=== PATIENT | male | born 1930 | race Caucasian/White ===

== ENCOUNTER 2019-09-19 10:08 | Observation (INO) | payer OTHER ==
[2019-09-19 11:43] LABS: Absolute Lymphocytes (CBC) 1.7 K/uL (0.7-4.9); Basophils % 0.5 % (0-1.3); Hematocrit 47.4 % (39.6-49.0); Lymphocytes % 13.9 % (15.3-44.8); MPV 7.8 fL (7.6-11.3)
[2019-09-19 12:10] LABS: Potassium 3.8 mmol/L (3.5-5.1)
--- NOTE | 2019-09-19 12:19 | RAD REPORT ---
EXAM DESCRIPTION: RAD - Chest Single View - 09/19/2019 12:06 pm CLINICAL HISTORY: COUGH COMPARISON: Two view chest July 2017 TECHNIQUE: AP portable chest image was obtained 09/19/2019 12:06 pm . FINDINGS: Interstitial and alveolar opacities are present in the right lower lung field superimposed on extensive fibrotic lung change. No dense consolidation. Stranding in the left base and left costo phrenic angle blunting are similar to the comparison. Heart and vasculature are normal. No pneumothorax. No acute bony abnormality seen. No acute aortic f indings suspected. IMPRESSION: Right lower lobe pneumonia changes are present superimposed on chronic interstitial lung disease. Chronic pleural and parenchymal changes left lung base.
--- NOTE | 2019-09-19 12:22 | ER ---
Nurse's Notes [facility] Name: King Henderson Age: 89 yrs Sex: Male : 1930 Arrival Date: 09/19/2019 Time: 10:11 Bed 6 Private MD: Rosa Adair Diagnosis: Pneumonia, unspecified organism Presentation: 09/18 10:43 Chief complaint: Patient's son or daughter states: Son, Rosemarie, reports he hasn't been jl7 feeling good x 1 day, Dr. Adair ordered a chest x-ray for this morning and reported he has pneumonia. Denies fever. Reports he has been quarantined in [facility] for the past couple months. Coronavirus screen: Proceed with normal triage. Patient reports a cough. Patient reports shortness of breath or difficulty breathing. Patient denies measured and/or subjective temperature greater than 100.4F prior to today's visit. Patient denies travel on a cruise ship or to a country the [facility] currently lists as an affected area. Patient denies contact with known and/or suspected case of COVID-19. Ebola Screen: No symptoms or risks identified at this time. Initial Sepsis Screen: Does the patient meet any 2 criteria? RR > 20 per min. No. Patient's initial sepsis screen is negative. Does the patient have a suspected source of infection? Yes: Productive cough/pneumonia. Risk Assessment: Do you want to hurt yourself or someone else? Patient reports no desire to harm self or others. Onset of symptoms was September 18, 2019. Care prior to arrival: None. 10:43 Method Of Arrival: Wheelchair jl7 10:43 Acuity: HITESH 3 jl7 Triage Assessment: 10:51 General: Appears in no apparent distress. uncomfortable, Behavior is calm, cooperative, jl7 appropriate for age. Pain: Denies pain. Historical: - Allergies: 10:51 NKDA; jl7 - Home Meds: 10:51 allopurinol 300 mg Oral tab 1 tab once daily [Active]; Breo Ellipta 100-25 mcg/dose jl7 inhalation dsdv [Active]; clopidogrel 75 mg Oral tab 1 tab once daily [Active]; diltiazem HCl 120 mg Oral CDER 1 cap once daily [Active]; fluticasone 50 mcg/actuation nasal spsn [Active]; furosemide 20 mg Oral tab 1 tab once daily [Active]; hydroxyzine HCl 10 mg Oral tab three times a day [Active]; lansoprazole 30 mg Oral cpDR 1 cap once daily [Active]; liothyronine 25 mcg Oral tab 0.5 tab once daily [Active]; lovastatin 10 mg Oral tab 1 tab once daily [Active]; Namenda XR 28 mg Oral CSpX 1 cap once daily [Active]; Mucinex 600 mg oral Ta12 [Active]; Colace 100 mg Oral cap 1 cap 2 times per day [Active]; Ventolin Nebulizer [Active]; - PMHx: 10:51 COPD; Dementia; Hyperlipidemia; Hypertension; Hyperuricemia; Hypothyroidism; CVA; jl7 Pneumonia; Gout; - PSHx: 11:00 None; rb1 - Immunization history:: Adult Immunizations up to date. - Social history:: Smoking status: Patient denies any tobacco usage or history of. Screenin:10 Abuse screen: Denies threats or abuse. Nutritional screening: No deficits noted. rb1 Tuberculosis screening: No symptoms or risk factors identified. 11:10 Fall Risk No fall in past 12 months (0 pts). Secondary diagnosis (15 points) impaired rb1 mobility, IV access (20 points). Ambulatory Aid- None/Bed Rest/Nurse Assist (0 pts). Gait- Impaired (20 pts.). Mental Status- Oriented to own ability (0 pts). Total Glez Fall Scale indicates High Risk Score (45 or more points). Fall prevention measures have been instituted. Side Rails Up X 2 Placed Close to Nursing Station 1:1 Attendant Assigned Frequent Obs/Assessments Occuring As available patient and family educated on Fall Prevention Program and Strategies. Assessment: 11:10 General: Appears uncomfortable, Behavior is calm, cooperative, Denies fever. Pain: rb1 Denies pain. Neuro: Level of Consciousness is awake, alert, obeys commands, Oriented to person, place, time, situation. Cardiovascular: Capillary refill < 3 seconds. Respiratory: Reports shortness of breath cough that is Airway is patent Respiratory effort is even, unlabored, Respiratory pattern is symmetrical, tachypnea. GI: No signs and/or symptoms were reported involving the gastrointestinal system. : No signs and/or symptoms were reported regarding the genitourinary system. Derm: Skin is pink, warm \T\ dry. 11:53 Reassessment: X-ray at the bedside. rb1 12:10 Reassessment: Patient appears in no apparent distress at this time. Patient and/or rb1 family updated on plan of care and expected duration. Pain level reassessed. Patient is alert, oriented x 3, equal unlabored respirations, skin warm/dry/pink. 13:00 Reassessment: Patient appears in no apparent distress at this time. Patient and/or rb1 family updated on plan of care and expected duration. Pain level reassessed. Patient states feeling better. 14:00 Reassessment: Patient appears in no apparent distress at this time. Pt. is watching TV. rb1 14:36 Reassessment: Called report to RICARDO Leija. Information from the [facility] was given. All rb1 questions asked and answered. Liss asked if we could wait to bring the pt. to the floor so she can have time to get another pt. transferred to another nurse. MARIELLA Sousa was notified of the situation. 15:00 Reassessment: Patient appears in no apparent distress at this time. Patient and/or rb1 family updated on plan of care and expected duration. Pain level reassessed. Patient is alert, oriented x 3, equal unlabored respirations, skin warm/dry/pink. Patient denies pain at this time. Vital Signs: 10:43 BP 115 / 53; Pulse 83; Resp 28; Temp 98.7; Pulse Ox 92% ; Weight 81.65 kg; Pain 0/10; jl7 12:30 BP 106 / 62; Pulse 79; Resp 23; Pulse Ox 94% on 2 lpm NC; rb1 13:14 BP 107 / 65; Pulse 76; Resp 25; Pulse Ox 97% on 3 lpm NC; rb1 14:10 BP 108 / 63; Pulse 76; Resp 21; Pulse Ox 96% on 3 lpm NC; rb1 15:00 BP 110 / 65; Pulse 74; Resp 23; Pulse Ox 97% 2 lpm ; rb1 ED Course: 10:11 Patient arrived in ED. as 10:11 Rosa Adair MD is Private Physician. as 10:26 [facility] Cede[facility]-C [facility]. kb 10:26 Jose Phan MD is Attending Physician. kb 10:47 Triage completed. jl7 10:51 Arm band placed on right wrist. jl7 11:00 Vaishali Hummel, RN is Primary Nurse. rb1 11:10 Patient has correct armband on for positive identification. Placed in gown. Bed in low rb1 position. Call light in reach. Side rails up X2. hall monitor on. Pulse ox on. NIBP on. Warm blanket given. Pillow given. 11:19 COVID walked over to lab. rb1 11:44 Initial lab(s) drawn, by me, sent to lab. First set of blood cultures drawn by me, lt1 Second set of blood cultures drawn by me. 11:54 Inserted saline lock: 22 gauge in right antecubital area, using aseptic technique. lt1 11:55 Blood Culture Adult (2) Sent. lt1 11:55 Basic Metabolic Panel Sent. lt1 11:56 COVID-19 Sent. lt1 11:56 Flu Sent. lt1 11:56 Procalcitonin Sent. lt1 11:56 Lactate Sent. lt1 12:07 Chest Single View In Process Unspecified. EDMS 12:21 Hong Harmon DO is Hospitalizing Provider. kb 12:58 Inserted saline lock: 22 gauge in right antecubital area, using aseptic technique. rb1 13:10 IV discontinued, intact, bleeding controlled, No redness/swelling at site. Pressure rb1 dressing applied. 15:24 No provider procedures requiring assistance completed. Patient admitted, IV remains in rb1 place. Administered Medications: 13:00 Drug: Rocephin 1 grams Route: IV; Rate: calculated rate; Site: right antecubital; rb1 13:15 Follow up: Response: No adverse reaction; IV Status: Completed infusion rb1 13:00 Drug: Zithromax 500 mg Route: IVPB; Infused Over: 1 hrs; Site: right antecubital; rb1 14:04 Follow up: Response: No adverse reaction; IV Status: Completed infusion rb1 Outcome: 12:22 Decision to Hospitalize by Provider. kb 15:24 Patient left the ED. aa5 15:24 Admitted to Tele accompanied by tech, via stretcher, room 414, with chart, Report rb1 called to RICARDO Leija 15:24 Condition: stable 15:24 Instructed on the need for admit. Signatures: Dispatcher [employer] EDMS Ana Cedeño, SKY DIVER-C SKY DIVER-Leann Robles Audri, RN RN aa5 Vaishali Hummel, RN RN rb1 Juan Carlos Brito RN RN jl7 Barb Roque lt1
--- NOTE | 2019-09-19 12:22 | EDPHYS ---
Physician Documentation [facility] Name: King Henderson Age: 89 yrs Sex: Male : 1930 Arrival Date: 09/19/2019 Time: 10:11 Bed 6 Private MD: Rosa Adair ED Physician Jose Phan HPI: 09/18 12:11 This 89 yrs old Male presents to ER via Wheelchair with complaints of kb Pneumonia. 12:12 The patient or guardian reports cough, that is intermittent, described as moderate, kb with no sputum. Onset: The symptoms/episode began/occurred 1 week(s) ago. Severity of symptoms: At their worst the symptoms were moderate, in the emergency department the symptoms are unchanged. Modifying factors: The symptoms are alleviated by nothing, the symptoms are aggravated by nothing. Associated signs and symptoms: The patient has no apparent associated signs or symptoms. The patient has not experienced similar symptoms in the past. The patient has not recently seen a physician. Pt reports cough for about a week. States it has been getting worse so Dr Adair had a CXR done today. He was told he has pneumonia and needed to come to the ER. . Historical: - Allergies: 10:51 NKDA; jl7 - Home Meds: 10:51 allopurinol 300 mg Oral tab 1 tab once daily [Active]; Breo Ellipta 100-25 mcg/dose jl7 inhalation dsdv [Active]; clopidogrel 75 mg Oral tab 1 tab once daily [Active]; diltiazem HCl 120 mg Oral CDER 1 cap once daily [Active]; fluticasone 50 mcg/actuation nasal spsn [Active]; furosemide 20 mg Oral tab 1 tab once daily [Active]; hydroxyzine HCl 10 mg Oral tab three times a day [Active]; lansoprazole 30 mg Oral cpDR 1 cap once daily [Active]; liothyronine 25 mcg Oral tab 0.5 tab once daily [Active]; lovastatin 10 mg Oral tab 1 tab once daily [Active]; Namenda XR 28 mg Oral CSpX 1 cap once daily [Active]; Mucinex 600 mg oral Ta12 [Active]; Colace 100 mg Oral cap 1 cap 2 times per day [Active]; Ventolin Nebulizer [Active]; - PMHx: 10:51 COPD; Dementia; Hyperlipidemia; Hypertension; Hyperuricemia; Hypothyroidism; CVA; jl7 Pneumonia; Gout; - PSHx: 11:00 None; rb1 - Immunization history:: Adult Immunizations up to date. - Social history:: Smoking status: Patient denies any tobacco usage or history of. ROS: 12:12 Constitutional: Negative for fever, chills, and weight loss, ENT: Negative for injury, kb pain, and discharge, Neck: Negative for injury, pain, and swelling, Cardiovascular: Negative for chest pain, palpitations, and edema, Abdomen/GI: Negative for abdominal pain, nausea, vomiting, diarrhea, and constipation, Back: Negative for injury and pain, MS/Extremity: Negative for injury and deformity, Skin: Negative for injury, rash, and discoloration, Neuro: Negative for headache, weakness, numbness, tingling, and seizure. 12:12 Respiratory: Positive for cough, "sounds productive", shortness of breath, Negative for hemoptysis, orthopnea, pleurisy. Exam: 12:12 Constitutional: This is a well developed, well nourished patient who is awake, alert, kb and in no acute distress. Head/Face: Normocephalic, atraumatic. Chest/axilla: Normal chest wall appearance and motion. Nontender with no deformity. No lesions are appreciated. Cardiovascular: Regular rate and rhythm with a normal S1 and S2. No gallops, murmurs, or rubs. Normal PMI, no JVD. No pulse deficits. Abdomen/GI: Soft, non-tender, with normal bowel sounds. No distension or tympany. No guarding or rebound. No evidence of tenderness throughout. Back: No spinal tenderness. No costovertebral tenderness. Full range of motion. Skin: Warm, dry with normal turgor. Normal color with no rashes, no lesions, and no evidence of cellulitis. MS/ Extremity: Pulses equal, no cyanosis. Neurovascular intact. Full, normal range of motion. Neuro: Awake and alert, GCS 15, oriented to person, place, time, and situation. Cranial nerves II-XII grossly intact. Motor strength 5/5 in all extremities. Sensory grossly intact. Cerebellar exam normal. Normal gait. 12:12 Respiratory: the patient does not display signs of respiratory distress, Respirations: normal, Breath sounds: rhonchi, that are mild, are located in both bases. Vital Signs: 10:43 BP 115 / 53; Pulse 83; Resp 28; Temp 98.7; Pulse Ox 92% ; Weight 81.65 kg; Pain 0/10; jl7 12:30 BP 106 / 62; Pulse 79; Resp 23; Pulse Ox 94% on 2 lpm NC; rb1 13:14 BP 107 / 65; Pulse 76; Resp 25; Pulse Ox 97% on 3 lpm NC; rb1 14:10 BP 108 / 63; Pulse 76; Resp 21; Pulse Ox 96% on 3 lpm NC; rb1 15:00 BP 110 / 65; Pulse 74; Resp 23; Pulse Ox 97% 2 lpm ; rb1 MDM: 10:52 Patient medically screened. kb 12:14 Data reviewed: vital signs, nurses notes. Data interpreted: Pulse oximetry: on room air kb is 92 %. Interpretation: normal. 12:16 Counseling: I had a detailed discussion with the patient and/or guardian regarding: the kb historical points, exam findings, and any diagnostic results supporting the discharge/admit diagnosis, lab results, radiology results, the need for further work-up and treatment in the hospital. 09/18 10:49 Order name: CBC with Diff; Complete Time: 11:56 kb 09/18 10:49 Order name: Basic Metabolic Panel; Complete Time: 12:15 kb 09/18 10:49 Order name: Blood Culture Adult (2) kb 09/18 10:49 Order name: Lactate; Complete Time: 12:07 kb 09/18 10:49 Order name: Procalcitonin; Complete Time: 12:41 kb 09/18 10:49 Order name: Flu; Complete Time: 12:00 kb 09/18 10:49 Order name: IV Start; Complete Time: 11:55 kb 09/18 10:49 Order name: COVID-19; Complete Time: 12:15 kb 09/18 11:05 Order name: Chest Single View; Complete Time: 12:22 EDMS Administered Medications: 13:00 Drug: Rocephin 1 grams Route: IV; Rate: calculated rate; Site: right antecubital; rb1 13:15 Follow up: Response: No adverse reaction; IV Status: Completed infusion rb1 13:00 Drug: Zithromax 500 mg Route: IVPB; Infused Over: 1 hrs; Site: right antecubital; rb1 14:04 Follow up: Response: No adverse reaction; IV Status: Completed infusion rb1 Disposition: 16:17 Co-signature as Attending Physician, Jose Phan MD I agree with the assessment and [facility] plan of care. Disposition: 09/19/19 12:22 Hospitalization ordered by Hong Harmon for Observation. Preliminary diagnosis is Pneumonia, unspecified organism. - Bed requested for Telemetry/MedSurg (observation). - Status is Observation. aa5 - Condition is Stable. - Problem is new. - Symptoms are unchanged. Signatures: Dispatcher [employer] EDWI Ana Cedeño, TICKET TAKER-C TICKET TAKER-Ckb Denia Garcia, RN RN dw Jose Phan MD MD kdr Merry Spencer RN RN aa5 Vaishali Hummel, RN RN rb1 Juan Carlso Brito, RN RN jl7 Corrections: (The following items were deleted from the chart) 11:05 10:51 Chest Pa And Lat (2 Views)+[email or web address] ordered. [facility] 12:42 12:22 Hospitalization Ordered by Hong Harmon DO for Inpatient Admission. Preliminary kb diagnosis is Pneumonia, unspecified organism. Bed requested for Telemetry/MedSurg (Inpatient). Status is Inpatient Admission. Condition is Stable. Problem is new. Symptoms are unchanged. kb 14:03 12:42 09/19/2019 12:22 Hospitalization Ordered by Hong Harmon DO for Observation. dw Preliminary diagnosis is Pneumonia, unspecified organism. Bed requested for Telemetry/MedSurg (observation). Status is Observation. Condition is Stable. Problem is new. Symptoms are unchanged. kb 14:06 14:03 09/19/2019 12:22 Hospitalization Ordered by Hong Harmon DO for Observation. dw Preliminary diagnosis is Pneumonia, unspecified organism. Bed requested for Telemetry/MedSurg (observation). Status is Observation. Condition is Stable. Problem is new. Symptoms are unchanged. dw 15:24 14:06 09/19/2019 12:22 Hospitalization Ordered by Hong Harmon DO for Observation. aa5 Preliminary diagnosis is Pneumonia, unspecified organism. Bed requested for Telemetry/MedSurg (observation). Status is Observation. Condition is Stable. Problem is new. Symptoms are unchanged. dw
[2019-09-19] MEDS ORDERED: CEFTRIAXONE/SWI 1gm 1 GM/10 ML SYR ONE (12:26)
[2019-09-19] MEDS ORDERED: AZITHROMYCIN IV 500 MG in NA CHLORIDE 0.9% 250 ML IVPB ONE (12:30)
[2019-09-19] MEDS ORDERED: ALBUTEROL INHALER 60 PUFF/8 GM IH PRN (15:11)
[2019-09-19] MEDS ORDERED: ACETAMINOPHEN 500 MG TAB PO PRN (15:11)
[2019-09-19] MEDS ORDERED: ONDANSETRON 4 MG/2 ML VIAL IV PRN (15:11)
[2019-09-19] MEDS ORDERED: BENZONATATE 100 MG CAP PO PRN (15:11)
[2019-09-19 16:10] VITALS: BMI 25.8
--- NOTE | 2019-09-19 16:22 | P.HP ---
Certification for Inpatient Patient admitted to: Observation With expected LOS: <2 Midnights Patient will require the following post-hospital care: Other (residential) Practitioner: I am a practitioner with admitting privileges, knowledge of patient current condition, hospital course, and medical plan of care. Services: Services provided to patient in accordance with Admission requirements found in Title 42 Section 412.3 of the Code of Federal Regulations Patient History Date of Service: 09/19/19 Primary Care Provider: Dr. Danielle Reason for admission: Abnormal chest x-ray History of Present Illness: 89-year-old male with past medical TIA, gout, hypertension and dementia. Emergency room after [facility] to further evaluate abnormal chest x-ray. The several days the patient has been having cough, congestion. He denies any significant shortness of breath. No significant complaints of fever, chills. His cough has been getting worse. He denies any nausea, vomiting, abdominal pain. Patient was sent over to further evaluate. In the ER patient was evaluated. Patient slightly tachypneic. White count 12.1, hemoglobin within normal range. Sodium 141, potassium 3.8 %period% creatinine 1.2 with a GFR 57. Glucose around 90. Pro calcitonin and lactic acid within normal range. Chest x-ray shows right lower lobe pneumonia with COPD changes. The patient was started on antibiotic therapy. Patient admitted for further evaluation. When I saw the patient ER, patient appeared stable. Oxygen saturations within normal range. Patient appears elderly. He does not appear septic. Allergies No Known Allergies Allergy (Unverified 06/07/17 07:01) Home medications list reviewed: Yes Home Medications: Allopurinol 1 tab PO DAILY 01/08/16 Clopidogrel Bisulfate [Clopidogrel] 1 tab PO DAILY 01/08/16 Furosemide 1 tab PO BID 01/08/16 Lansoprazole 1 cap PO DAILY 01/08/16 Liothyronine Sodium [Cytomel] 0.5 tab OP DAILY 01/08/16 Lovastatin 1 tab PO BEDTIME 01/08/16 Memantine HCl [Namenda Xr] 1 cap PO DAILY 01/08/16 Fluticasone/Salmeterol [Advair 250/50 Diskus*] 250 inhaler IH DAILY 03/16/16 Albuterol Sulfate [Proair Hfa] 2 puff IH Q6H PRN 06/06/17 Diltiazem Hcl 120 Mg Oral C D E R 1 cap PO DAILY 06/06/17 Vit D3 1000 Unit 5,000 unit PO DAILY 06/06/17 Acetaminophen [Pain Relief] 2 tab PO SEECOM PRN 09/19/19 Docusate Calcium [Tono-Tin] 1 tab PO DAILY AFTER SUPPER 09/19/19 Fluticasone/Vilanterol [Breo Ellipta 100-25 Mcg INH] 1 inh IH BID 09/19/19 Guaifenesin [Mucinex] 1 tab PO BID 09/19/19 Hydroxyzine HCl [Atarax] 1 tab PO TID 09/19/19 - Past Medical/Surgical History Has patient received pneumonia vaccine in the past: Yes Diabetic: No -: Dementia -: Hypertension -: Carotid arterial disease -: History of CVA in 2008 -: Hypothyroidism -: GERD -: Alcohol use -: COPD -: Former smoker -: Left hand surgery Psychosocial/ Personal History: He is . Has 3 children. He previously worked as a mail person. - Family History Family History: Reviewed- Non-Contributory - Social History Smoking Status: Former smoker Alcohol use: No CD- Drugs: No Caffeine use: Yes Place of Residence: Shelter Review of Systems General: As per HPI Eyes: Unremarkable ENT: Unremarkable Respiratory: Cough, As per HPI Cardiovascular: Unremarkable Gastrointestinal: Unremarkable Genitourinary: Unremarkable Musculoskeletal: Unremarkable Integumentary: Unremarkable Neurological: Unremarkable Lymphatics: Unremarkable Physical Examination - Vital Signs Temperature: 98.7 F Blood Pressure: 108/63 Pulse: 76 Respirations: 21 - Physical Exam General: Alert, In no apparent distress, Oriented x3, Cooperative HEENT: Atraumatic, Mucous membr. moist/pink (Increase mucus and drainage), Other (Patient with difficulty hearing) Neck: Supple Respiratory: Crackles/rales (Mild crackles to the right base) Cardiovascular: Normal pulses, Regular rate/rhythm Gastrointestinal: Normal bowel sounds, Soft and benign, Non-distended, No tenderness, No masses, No rebound, No guarding Musculoskeletal: No erythema, No tenderness, No warmth Integumentary: No tenderness/swelling, No erythema, No warmth, No cyanosis Neurological: Normal speech, Normal strength at 5/5 x4 extr, Normal tone, Normal affect - Studies Laboratory Data (last 24 hrs) 09/19/19 11:29: Sodium 141, Potassium 3.8, BUN 29 H, Creatinine 1.20, Glucose 99 09/19/19 11:29: WBC 12.1 H, Hgb 15.8, Hct 47.4, Plt Count 245 Microbiology Data (last 24 hrs): 09/19/19 11:10 Nasopharnyx Coronavirus COVID-19 PCR - Final 09/19/19 11:29 Nasopharnyx Influenza Type A Antigen Screen - Final 09/19/19 11:29 Nasopharnyx Influenza Type B Antigen Screen - Final Assessment and Plan - Plan Impression: Cough, tachypnea secondary to right lower lobe pneumonia possible aspiration complicated with COPD exacerbation Hypertension History of CVA Dementia Hyperlipidemia Hypothyroidism Plan: Cough, tachypnea secondary to right lower lobe pneumonia possible aspiration complicated with COPD exacerbation: Patient will be admitted for further evaluation and observation. Will start Rocephin and Zithromax. Will provide medication for cough, congestion. Due to his risk factors the patient will be evaluated for COVID. Influenza test pending at this time. Blood cultures obtained. Will continue to monitor and reassess. Will also start prednisone 10 mg daily. Will provide COPD medication. Maintain sats above 93%. Wean off oxygen. Anticipate improvement over the next 24 hr. Likely [facility] tomorrow. Advanced directives address in detail. Patient is do not resuscitate. Will place on DVT prophylaxis. Hypertension: Obtain and restart home medication. History of CVA: Obtain and restart home medication. Dementia: Obtain and restart home medication. Hyperlipidemia: Obtain and restart home medication. Hypothyroidism: Continue with home medication Discharge Plan: Shelter Plan to discharge in: 24 Hours - Advance Directives Does patient have a Living Will: Yes Does patient have a Durable POA for Healthcare: No - Code Status/Comfort Care Code Status Assessed: Yes (Patient is DNR) Time Spent Managing Pts Care (In Minutes): 55
[2019-09-19] MEDS: ENOXAPARIN 40 MG/0.4 ML SQ SCH (16:40)
[2019-09-19] MEDS: FUROSEMIDE 20 MG TABLET PO SCH (16:40)
[2019-09-19] MEDS: predniSONE 10 MG TAB PO SCH (16:42)
[2019-09-19] MEDS ORDERED: DOCUSATE CALCIUM 240 MG CAP PO SCH (17:30)
[2019-09-19] MEDS ORDERED: HOME MED 1 EA UNK (Lovastatin [Lovastatin] 1 TAB) PO SCH (21:00)
[2019-09-19] MEDS ORDERED: ATORVASTATIN 10 MG TAB PO SCH ×2 (21:00)
[2019-09-19] MEDS ORDERED: MEMANTINE HCL 10 MG TABLET PO SCH (21:00)
[2019-09-19] MEDS: GUAIFENESIN 600 MG SA TAB PO SCH (21:17)
[2019-09-19] MEDS: DULERA 100/5 (MOMETASONE/FORMOTEROL) INHALER IH SCH (21:18)
[2019-09-19] MEDS: CEFTRIAXONE/SWI 1gm 1 GM/10 ML SYR IVP SCH (21:18)
[2019-09-20 06:09] LABS: Absolute Lymphocytes (CBC) 1.7 K/uL (0.7-4.9); Basophils % 0.2 % (0-1.3); Hematocrit 47.1 % (39.6-49.0); Lymphocytes % 19.7 % (15.3-44.8); RBC Red Blood Cell Count 5.25 M/uL (4.33-5.43)
[2019-09-20 06:17] LABS: Magnesium 2.4 mg/dL (1.8-2.4); Potassium 4.4 mmol/L (3.5-5.1)
[2019-09-20] MEDS ORDERED: LIOTHYRONINE SOD 25 MCG TAB PO SCH (06:30)
[2019-09-20 08:46] VITALS: O2SAT 91
[2019-09-20] MEDS ORDERED: ASPIRIN EC 81 MG TAB PO SCH (09:00)
[2019-09-20] MEDS ORDERED: CLOPIDOGREL 75 MG TABLET PO SCH (09:00)
[2019-09-20] MEDS ORDERED: allopurinoL 300 MG TAB PO SCH (09:00)
[2019-09-20] MEDS ORDERED: VIT D3 PO SCH (09:00)
[2019-09-20] MEDS ORDERED: DILTIAZEM HCL 120 MG SR CAP PO SCH (09:00)
[2019-09-20] MEDS ORDERED: AZITHROMYCIN 250 MG TAB PO SCH (09:00)
[2019-09-20] MEDS ORDERED: HOME MED 1 EA UNK (Memantine Hcl [Namenda Xr] 1 CAP) PO SCH (09:00)
[2019-09-20] MEDS ORDERED: VITAMIN D 5,000 UNIT CAP PO SCH (09:00)
[2019-09-20] MEDS: FUROSEMIDE 20 MG TABLET PO SCH (09:48)
[2019-09-20] MEDS: predniSONE 10 MG TAB PO SCH (09:49)
[2019-09-20] MEDS: CEFTRIAXONE/SWI 1gm 1 GM/10 ML SYR IVP SCH (09:49)
[2019-09-20] MEDS: ENOXAPARIN 40 MG/0.4 ML SQ SCH (09:49)
[2019-09-20] MEDS: GUAIFENESIN 600 MG SA TAB PO SCH (09:49)
[2019-09-20] MEDS: DULERA 100/5 (MOMETASONE/FORMOTEROL) INHALER IH SCH (09:50)
--- NOTE | 2019-09-20 12:07 | RAD REPORT ---
EXAM DESCRIPTION: Shimat Pa And Lat (2 Views)09/20/2019 12:00 pm CLINICAL HISTORY: Cough COMPARISON: September 18 FINDINGS: Mild improvement in right basilar opacities Additional lung opacities appear chronic. The heart is normal size IMPRESSION: Mild improvement in a right basilar pneumonia
--- NOTE | 2019-09-20 12:11 | RAD REPORT ---
EXAM DESCRIPTION: RAD - Barium Swallow Modified - 09/20/2019 12:00 pm CLINICAL HISTORY: Pneumonia FINDINGS: LARYNGEAL PENETRATION DEEP TO VOCAL CORDS WITH NECTAR: POSSIBLE TRACE ASPIRATION, NOT PO RED ASPIRATION WITH TSP OF THIN, NO COUGH PHARYNGEAL RESIDUE, VALLECULAR, PYRIFORM, AND POSTERIOR WALL, MILD - MODERATE THERE IS REDUCED ORAL BOLUS MANIPULATION, REDUCED TONGUE BASE RETRACTION, REDUCED LARYNGEAL ELEVATION/ PROTRACTION, REDUCED EPIGLOTTIC INVERSION, REDUCED CONTRACTI ON OF THE POSTERIOR PHARYNGEAL WALL, AND REDUCED SENSORY RESPONSE. THERE WAS POOLING IN THE VALLECULAE AND PYRIFORMS. SILENT ASPIRATION OCCURRED WITH TSP OF THIN LIQUID; WITH NECTAR THERE WAS DEEP PENETRATION TO THE LEV EL OF THE VOCAL CORDS WITH COUGH PRESENT AND POSSIBLE TRACE ASPIRATION. THERE WAS NO PENETRATION OR ASPIRATION WITH HONEY, PUREED, OR MECHANICAL SOFT. THERE WAS MOD- SIGNIFICANT ESOPHAGEAL STASIS WITH FINAL PUREED BOLUS. Fluoroscopy time 3.2 minutes. Twenty-four fluoroscopic spot images obtained
--- NOTE | 2019-09-20 15:29 | P.DS ---
Admission Date: 09/19/19 Discharge Date: 09/20/19 Primary Care Provider: Dr. Danielle Disposition: TRANSFER TO ASSISTED Discharge Condition: GOOD Reason for Admission: Abnormal chest x-ray Consultations: none Procedures: Modified barium swallow with Speech evaluation: FINDINGS: LARYNGEAL PENETRATION DEEP TO VOCAL CORDS WITH NECTAR: POSSIBLE TRACE ASPIRATION, NOT CLEARED ASPIRATION WITH TSP OF THIN, NO COUGH PHARYNGEAL RESIDUE, VALLECULAR, PYRIFORM, AND POSTERIOR WALL, MILD - MODERATE THERE IS REDUCED ORAL BOLUS MANIPULATION, REDUCED TONGUE BASE RETRACTION, REDUCED LARYNGEAL ELEVATION/ PROTRACTION, REDUCED EPIGLOTTIC INVERSION, REDUCED CONTRACTION OF THE POSTERIOR PHARYNGEAL WALL, AND REDUCED SENSORY RESPONSE. THERE WAS POOLING IN THE VALLECULAE AND PYRIFORMS. SILENT ASPIRATION OCCURRED WITH TSP OF THIN LIQUID; WITH NECTAR THERE WAS DEEP PENETRATION TO THE LEVEL OF THE VOCAL CORDS WITH COUGH PRESENT AND POSSIBLE TRACE ASPIRATION. THERE WAS NO PENETRATION OR ASPIRATION WITH HONEY, PUREED, OR MECHANICAL SOFT. THERE WAS MOD- SIGNIFICANT ESOPHAGEAL STASIS WITH FINAL PUREED BOLUS. CXR: COMPARISON: September 18 FINDINGS: Mild improvement in right basilar opacities Additional lung opacities appear chronic. The heart is normal size IMPRESSION: Mild improvement in a right basilar pneumonia Medical Problem List: Cough, tachypnea secondary to right lower lobe pneumonia likely aspiration complicated with COPD exacerbation Moderate esophageal stasis Hypertension History of CVA Dementia Hyperlipidemia Hypothyroidism Brief History of Present Illness: 89-year-old male with past medical TIA, gout, hypertension and dementia. Emergency room after he was sent from the shelter to further evaluate abnormal chest x-ray. The several days the patient has been having cough, congestion. He denies any significant shortness of breath. No significant complaints of fever, chills. His cough has been getting worse. He denies any nausea, vomiting, abdominal pain. Patient was sent over to further evaluate. In the ER patient was evaluated. Patient slightly tachypneic. White count 12.1, hemoglobin within normal range. Sodium 141, potassium 3.8 %period% creatinine 1.2 with a GFR 57. Glucose around 90. Pro calcitonin and lactic acid within normal range. Chest x-ray shows right lower lobe pneumonia with COPD changes. The patient was started on antibiotic therapy. Patient admitted for further evaluation. When I saw the patient ER, patient appeared stable. Oxygen saturations within normal range. Patient appears elderly. He does not appear septic. Hospital Course: Patient presented with cough, tachypnea secondary to right lower lobe pneumonia likely aspiration. This was complicated with COPD exacerbation. The patient was admitted and started IV antibiotic therapy. Influenza test negative.COVID test negative. The patient did well during the course of his stay. At discharge patient qualified for oxygen for stable COPD. At discharge he will continue with oxygen to maintain sats above 93%. For his pneumonia, patient will continue with Augmentin 500 mg twice daily for 7 days. Patient may continue with Mucinex over the counter twice daily as needed for congestion. For his COPD patient will continue with his medications of Advair 1 puff twice daily, Breo 1 puff daily, and Pro air 2 puffs 3 times a day as needed for shortness of breath. At discharge he will continue with prednisone 10 mg daily for the next 5 days. Aspiration pneumonia education and prevention provided. This will need to be continued at the shelter. Recommend recheck chest x- ray in 2-4 weeks to monitor resolution. Due to his aspiration pneumonia the patient was evaluated with speech therapy. Modified barium swallow was performed. This showed moderate to significant esophageal stasis. Speech recommended pureed diet and honey thickened liquids. Speech therapy also recommended GI consult. This can be done as an outpatient. Speech exercises and recommendations will be continued at the shelter. This includes double swallowing, remain upright for at least 60 min after eating. Slow deliberate eating recommended. Patient with underlying hypertension, history of CVA, dementia, hyperlipidemia, and hypothyroidism. At discharge he will continue with his current medications. Vital Signs/Physical Exam: Temp Pulse Resp BP Pulse Ox 97.1 F 75 17 165/50 H 91 09/20/19 12:00 09/20/19 12:00 09/20/19 12:00 09/20/19 12:00 09/20/19 12:00 General: Alert, In no apparent distress, Oriented x3, Cooperative HEENT: Atraumatic Neck: Supple Respiratory: Crackles/rales (To the right base) Cardiovascular: Normal pulses, Regular rate/rhythm Gastrointestinal: Normal bowel sounds, Soft and benign, Non-distended Integumentary: No tenderness/swelling, No erythema, No warmth, No cyanosis Neurological: Normal speech, Normal strength at 5/5 x4 extr, Normal tone, Normal affect Laboratory Data at Discharge: WBC 8.6 K/uL (4.3-10.9) D 09/20/19 05:09 Hgb 15.6 g/dL (13.6-17.9) 09/20/19 05:09 Hct 47.1 % (39.6-49.0) 09/20/19 05:09 Plt Count 226 K/uL (152-406) 09/20/19 05:09 Sodium 141 mmol/L (136-145) 09/20/19 05:09 Potassium 4.4 mmol/L (3.5-5.1) 09/20/19 05:09 BUN 23 mg/dL (7-18) H 09/20/19 05:09 Creatinine 1.03 mg/dL (0.55-1.3) 09/20/19 05:09 Glucose 99 mg/dL (74-106) 09/20/19 05:09 Magnesium 2.4 mg/dL (1.8-2.4) 09/20/19 05:09 Home Medications: Allopurinol 1 tab PO DAILY 01/08/16 Clopidogrel Bisulfate [Clopidogrel] 1 tab PO DAILY 01/08/16 Furosemide 1 tab PO BID 01/08/16 Lansoprazole 1 cap PO DAILY 01/08/16 Liothyronine Sodium [Cytomel] 0.5 tab OP DAILY 01/08/16 Lovastatin 1 tab PO BEDTIME 01/08/16 Memantine HCl [Namenda Xr] 1 cap PO DAILY 01/08/16 Fluticasone/Salmeterol [Advair 250/50 Diskus*] 250 inhaler IH DAILY 03/16/16 Albuterol Sulfate [Proair Hfa] 2 puff IH Q6H PRN 06/06/17 Diltiazem Hcl 120 Mg Oral C D E R 1 cap PO DAILY 06/06/17 Vit D3 1000 Unit 5,000 unit PO DAILY 06/06/17 Acetaminophen [Pain Relief] 2 tab PO SEECOM PRN 09/19/19 Docusate Calcium [Tono-Tin] 1 tab PO DAILY AFTER SUPPER 09/19/19 Fluticasone/Vilanterol [Breo Ellipta 100-25 Mcg INH] 1 inh IH BID 09/19/19 Guaifenesin [Mucinex] 1 tab PO BID 09/19/19 Hydroxyzine HCl [Atarax] 1 tab PO TID 09/19/19 Amoxicillin/Potassium Clav [Augmentin 500-125 Tablet] 1 each PO BID #14 tablet 09/20/19 predniSONE [Deltasone*] 10 mg PO DAILY #5 tab 09/20/19 New Medications: Amoxicillin/Potassium Clav [Augmentin 500-125 Tablet] 1 each PO BID #14 tablet predniSONE [Deltasone*] 10 mg PO DAILY #5 tab Patient Discharge Instructions: 1. Return to [facility]. 2. Patient presented with cough, tachypnea secondary to right lower lobe pneumonia likely aspiration. This was complicated with COPD exacerbation. The patient was admitted and started IV antibiotic therapy. Influenza test negative.COVID test negative. The patient did well during the course of his stay. At discharge patient qualified for oxygen for stable COPD. At discharge he will continue with oxygen to maintain sats above 93%. For his pneumonia, patient will continue with Augmentin 500 mg twice daily for 7 days. Patient may continue with Mucinex over the counter twice daily as needed for congestion. For his COPD patient will continue with his medications of Advair 1 puff twice daily, Breo 1 puff daily, and Pro air 2 puffs 3 times a day as needed for shortness of breath. At discharge he will continue with prednisone 10 mg daily for the next 5 days. Aspiration pneumonia education and prevention provided. This will need to be continued at the shelter. Recommend recheck chest x- ray in 2-4 weeks to monitor resolution. 3. Due to his aspiration pneumonia the patient was evaluated with speech therapy. Modified barium swallow was performed. This showed moderate to significant esophageal stasis. Speech recommended pureed diet and honey thickened liquids. Speech therapy also recommended GI consult. This can be done as an outpatient. Speech exercises and recommendations will be continued at the shelter. This includes double swallowing, remain upright for at least 60 min after eating. Slow deliberate eating recommended. 4. Patient with underlying hypertension, history of CVA, dementia, hyperlipidemia, and hypothyroidism. At discharge he will continue with his current medications. Diet: Pureed diet and honey thickened liquids Activity: Fall precautions Time spent managing pt's care (in minutes): 55
[2019-09-20 16:28] VITALS: BP 132/68; TEMP 97.9
== END 2019-09-20 19:40 | disposition home or self-care (01) ==
LOC: ER 10:08 → ERHOLD 12:56 → 4TH 14:50 → 2ND 19:52
PROVIDERS: ADMIT Family Medicine; ATTEND Family Medicine
DX: J18.9 Pneumonia, unspecified organism (principal); J44.1 Chronic obstructive pulmonary disease with (acute) exacerbation; J44.0 Chronic obstructive pulmonary disease with (acute) lower respiratory infection; I10 Essential (primary) hypertension; E03.9 Hypothyroidism, unspecified; K21.9 Gastro-esophageal reflux disease without esophagitis; J44.9 Chronic obstructive pulmonary disease, unspecified; F03.90 Unspecified dementia, unspecified severity, without behavioral disturbance, psychotic disturbance, mood disturbance, and anxiety; Z86.73 Personal history of transient ischemic attack (TIA), and cerebral infarction without residual deficits; Z87.891 Personal history of nicotine dependence; Z20.828 Contact with and (suspected) exposure to other viral communicable diseases
CPT/HCPCS: 96365; 87040 ×2; 85025 ×2; 80048 ×2; 36415; 83735; 83605; 84145; 87804 ×2; 71045; 71046; 74230; 92611; 94760 ×3; 96375; 99285; U0002; J0456; J1650 ×2; J0696 ×3; J7030; G0378 ×6; J7512; J7606